=== PATIENT | female | born 1965 ===

== ENCOUNTER → 2023-03-04 07:42 | Outpatient (CLI) | payer BC, SELFPAY ==
--- NOTE | 2023-03-04 | DI.NM.S_ITS ---
PROCEDURE: NM EXERCISE TREADMILL NON NUC COMPARISON: None. INDICATIONS: Chest pain, unspecified FINDINGS: The patient exercised for 7 minutes and 31 seconds, reaching 113% of maximum predicted heart rate. 7.5 METs, STEPHANIE -4%. Appropriate BP response to exercise. No angina, no diagnostic ST changes, and no ectopy during exercise or recovery. IMPRESSION: Low risk, normal treadmill ECG only stress test with fair exercise tolerance (STEPHANIE -4%). Dictated by: Adamaris San MD on 03/04/2023 at 13:18 Approved by: Adamaris San MD on 03/04/2023 at 13:20
== END ==
PROVIDERS: PCP Nurse Practitioner Family; Referring Provider Internal Medicine Cardiovascular Disease; Visit Provider Internal Medicine Cardiovascular Disease
DX: R07.9 Chest pain, unspecified (principal)
CPT/HCPCS: 93017